=== PATIENT | female | born 1995 | race American Indian/Alaskan Native ===

== ENCOUNTER 2017-08-11 11:07 | Outpatient (CLI) | payer OTHER ==
[2017-08-11] MEDS ORDERED: LACTATED RINGERS 1,000 ML IV ONE (12:30)
[2017-08-11 12:34] LABS: Bacteria,Urine 2+ /HPF (Negative); Bilirubin,Urine NEG (Negative); Blood,Urine SM (Negative); Color,Urine Yellow (Yellow); Mucus,Urine 1+ /HPF; Protein,Urine <15 mg/dL mg/dL (Negative); Urobilinogen,Urine < 2.0 mg/dL (<2.0)
[2017-08-11 12:37] LABS: WBC,Urine > 182.0 /HPF (0.0-6.0)
[2017-08-11] MEDS ORDERED: MACROBID PO ONE (12:42)
[2017-08-11 12:45] LABS: Amphetamine Screen,Urine PRESUMPTIVE NEGATIVE; Benzodiazepines Screen,Urine PRESUMPTIVE NEGATIVE; Cannabinoid Screen,Urine PRESUMPTIVE NEGATIVE; Cocaine Screen,Urine PRESUMPTIVE NEGATIVE; Methadone Screen,Urine PRESUMPTIVE NEGATIVE; Opiate Screen,Urine PRESUMPTIVE NEGATIVE
== END 2017-08-11 13:20 | disposition home or self-care (01) ==
LOC: TRG 11:07
PROVIDERS: ATTEND Obstetrics & Gynecology
DX: O47.02 False labor before 37 completed weeks of gestation, second trimester (principal); Z3A.30 30 weeks gestation of pregnancy
CPT/HCPCS: 59025; 80307; 81001; 87076; 87086; 87186; 96360; J7120

== ENCOUNTER 2017-10-10 14:42 | Outpatient (CLI) | payer OTHER ==
[2017-10-10 15:15] VITALS: BP 123/80
[2017-10-10] MEDS ORDERED: LACTATED RINGERS 1,000 ML ONE (16:21)
--- NOTE | 2017-10-10 16:32 | Ultrasound Report ---
FINAL REPORT EXAM: US OB BPP WO NON-STRESS HISTORY: well being COMPARISON: None available. TECHNIQUE: Several real-time grayscale and color Doppler images were obtained. FINDINGS: Normal breathing movements, movements, posterior tone, qualitative amniotic fluid volume. heart rate 135 beats per minute. IMPRESSION: Biophysical profile score 8/8.
--- NOTE | 2017-10-10 16:33 | Ultrasound Report ---
FINAL REPORT EXAM: US OB LIMITED HISTORY: ann COMPARISON: Biophysical profile score from the same date. TECHNIQUE: Several real-time grayscale and color Doppler images were obtained. FINDINGS: Limited exam performed. Evaluation performed for or ANN measurement. ANN 10.1 centimeters. Single live IUP demonstrated. heart rate 137 beats per minute. presentation cephalic. IMPRESSION: Limited exam performed for evaluation of ANN. Total ANN 10.1 centimeters within normal limits.
[2017-10-10] MEDS ORDERED: BRETHINE SUB-Q ONE (17:00)
[2017-10-10] MEDS ORDERED: LACTATED RINGERS 1,000 ML IV ONE (17:00)
[2017-10-10] MEDS ORDERED: VISTARIL PO PRN (17:29)
== END 2017-10-10 17:56 | disposition home or self-care (01) ==
LOC: TRG 14:42
PROVIDERS: ATTEND Obstetrics & Gynecology
DX: O47.1 False labor at or after 37 completed weeks of gestation (principal); Z3A.39 39 weeks gestation of pregnancy; O99.333 Smoking (tobacco) complicating pregnancy, third trimester
CPT/HCPCS: 59025; 76815; 76819; 96360; 96372; J3105; J7120; Q0177

== ENCOUNTER 2017-10-10 19:42 | Inpatient (IN) | payer OTHER ==
[2017-10-10] MEDS ORDERED: VISTARIL PO ONE (20:00)
[2017-10-10] MEDS ORDERED: LACTATED RINGERS 1,000 ML IV SCH (20:00)
[2017-10-10] MEDS ORDERED: POLYCILLIN/NS 2 GM/100 ML 2 GM/100 ML BAG IV SCH (21:00)
[2017-10-10] MEDS ORDERED: ePHEDrine SULFATE IV PRN (21:29)
[2017-10-10] MEDS ORDERED: NARCAN 2 MG/2 ML IV PRN (21:29)
--- NOTE | 2017-10-10 21:29 | Anesthesia Consultation ---
Anesthesia Consult and Med Hx Date of service: 10/10/17 - Airway Anesthetic Teeth Evaluation: Good ROM Head & Neck: Adequate Mental/Hyoid Distance: Adequate Mallampati Class: Class II Intubation Access Assessment: Good - Pulmonary Exam CTA: Yes - Cardiac Exam Cardiac Exam: No Murmur - Pre-Operative Health Status ASA Pre-Surgery Classification: ASA2 Proposed Anesthetic Plan: Epidural - Pulmonary Hx Asthma: No COPD: No Hx Pneumonia: No - Cardiovascular System Hx Hypertension: Yes (unknown 2015) - Central Nervous System Hx Seizures: No Hx Psychiatric Problems: No - Endocrine Hx Renal Disease: No Hx End Stage Renal Disease: No Hx Hypothyroidism: No Hx Hyperthyroidism: No - Hematic Hx Anemia: No Hx Sickle Cell Disease: No - Other Systems Hx Alcohol Use: No
[2017-10-10] MEDS ORDERED: MORPHINE ONE ×2 (21:33→21:44)
[2017-10-10] MEDS ORDERED: TORADOL ONE (21:45)
[2017-10-10 21:47] LABS: Hematocrit 33.3 % (30.3-42.9); Mean Corpuscular HGB Conc 33 % (30-34); Mean Corpuscular Volume 74 fl (79-97); Platelet Count 203 K/mm3 (140-440); Red Cell Distribution Width 15.2 % (13.2-15.2)
[2017-10-10 21:48] LABS: Mean Corpuscular Hemoglobin 24 pg (28-32)
[2017-10-10] MEDS ORDERED: SUBLIMAZE IV PRN (21:51)
[2017-10-10] MEDS ORDERED: XYLOCAINE MPF 2% ONE ×4 (21:55)
[2017-10-10] MEDS ORDERED: fentaNYL-BUPIV 2 MCG/ML-0.125% 200 MCG/100 ML BAG EPIDURAL SCH (22:00)
[2017-10-10] MEDS ORDERED: VERSED ONE (22:01)
[2017-10-11] MEDS ORDERED: ZOFRAN IV PRN (00:30)
[2017-10-11] MEDS ORDERED: MINERAL OIL PO PRN (00:30)
[2017-10-11] MEDS ORDERED: BRETHINE SUB-Q PRN (00:30)
[2017-10-11] MEDS ORDERED: SUBLIMAZE IV PRN (00:30)
[2017-10-11] MEDS ORDERED: XYLOCAINE 2% INFILTRATI ONE (00:30)
--- NOTE | 2017-10-11 00:37 | History and Physical Report ---
History of Present Illness Date of examination: 10/11/17 (pt presents for the 2nd time today; now in active labor) Date of admission: 10/10/17 20:31 History of present illness: EDC Confirmation: 10/16/2017 Gestational Age: 32 5/7 weeks Past History : 1 Para: 0 Past Medical History: Reviewed history and no changes required: Negative Past Medical History Past Surgical History: Reviewed history and no changes required: Negative Past Surgical History Risk Factors: Smoked Tobacco Use: Current every day smoker Counseled to quit/cut down: yes Drug use: yes Substance: marijuana HIV high-risk behavior: low risk Caffeine use: 1 drinks per day Alcohol use: no Seatbelt use: 100 % Dietary Counseling: pn yes Family History Summary: No Known Family History - Entered On: 08/26/2017 Social History: Patient is single Smoking History: Patient currently smokes every day. Pt states she has stopped. Patient has been counseled to quit. Past Medical History Surgery (Non-rehabilitator): Negative Past Surgical History Abnormal PAP: negative CARLOS Exposure: negative Infertility: negative Uterine Anomaly: negative Uterine Surgery (not C/S): negative Other Gynecologic Problems: negative Social Hx: Patient is single Smoking History: Patient currently smokes every day. Pt states she has stopped. Patient has been counseled to quit. Infection History Hx of STD: chlamydia HIV Risk Eval: low risk Hepatitis B Risk Eval: low risk Personal hx. of genital herpes: no Partner hx. of genital herpes: no Rash, Viral, or Febrile illness since last LMP? no Varicella/Chicken Pox Status: Immunized TB Risk: no Genetic History Congenital Heart Defect: Mom: no Dad: no Pam Disease: Mom: no Dad: no Thalassemia Mom: no Dad: no Neural Tube Defect Mom: no Dad: no Down's Syndrome Mom: no Dad: no Michael-Sachs Mom: no Dad: no Sickle Cell Disease/Trait Mom: no Dad: no Hemophilia Mom: no Dad: no Muscular Dystrophy Mom: no Dad: no Cystic Fibrosis Mom: no Dad: no Mele Chorea Mom: no Dad: no Mental Retardation Mom: no Dad: no Fragile X Mom: no Dad: no Other Genetic/Chromosomal Disorder Mom: no Dad: no Child w/other defect Mom: no Dad: no Comments/Counseling: FOB is Enviromental Exposures Xray Exposure: no Medication, drug, or alcohol use since LMP: no Chemical/Other Exposure: no Exposure to Cat Liter: no Hx of Parvovirus (Fifth Disease): no Occupational Exposure to Children: none Current Allergies: No known allergies Past History - Obstetrical History Expected Date of Delivery: 10/16/17 Actual Gestation: 39 Week(s) 2 Day(s) : 1 Para: 0 Number of Living Children: 0 Medications and Allergies Allergies Allergy/AdvReac Type Severity Reaction Status Date / Time No Known Allergies Allergy Unverified 08/11/17 11:55 Home Medications Medication Instructions Recorded Confirmed Last Taken Type Nitrofurantoin Monohyd/M-Cryst 100 mg PO BID #13 capsule 08/11/17 10/10/17 Unknown Rx [Macrobid 100 mg Capsule] Pnv No.103/Folic/Om3s/Fish Oil 1 each PO DAILY 08/11/17 10/10/17 10/10/17 10:00 History [ Gummies] Active Meds: Active Medications Ephedrine Sulfate (Ephedrine Sulfate) 10 mg IV Q2M PRN PRN Reason: Hypotension Last Admin: 10/10/17 23:10 Dose: 10 mg Fentanyl (Sublimaze) 100 mcg IV Q2H PRN PRN Reason: Labor Pain Lactated Ringer's (Lactated Ringers) 1,000 mls @ 125 mls/hr IV DIRECT MICHEL Last Admin: 10/10/17 21:03 Dose: 125 mls/hr Fentanyl/Bupivacaine/Sodium Chlor (Fentanyl-Bupiv 2 Mcg/Ml-0.125%) 200 mcg in 100 mls @ 12 mls/hr EPIDURAL TITR MICHEL; Protocol Last Admin: 10/10/17 23:30 Dose: 12 mls/hr Lactated Ringer's (Lactated Ringers) 1,000 mls @ 125 mls/hr IV DIRECT MICHEL Oxytocin/Sodium Chloride (Pitocin/Ns 20 Unit/1000ml Drip) 20 units in 1,000 mls @ 125 mls/hr IV DIRECT MICHEL Lidocaine (Xylocaine 2%) 20 ml INFILTRATI ONCE ONE Stop: 10/11/17 00:31 Mineral Oil (Mineral Oil) 30 ml PO QHS PRN PRN Reason: Constipation Naloxone HCl (Narcan 2 Mg/2 Ml) 0.2 mg IV Q5M PRN PRN Reason: Respiratory sedation Ondansetron HCl (Zofran) 4 mg IV Q8H PRN PRN Reason: Nausea And Vomiting Terbutaline Sulfate (Brethine) 0.25 mg SUB-Q ONCE PRN PRN Reason: Hyperstimulation/Hypertonicity - Vital Signs Vital signs: Vital Signs Pulse Pulse Ox 96 H 93 10/10/17 19:55 10/10/17 19:55 Temp Pulse Resp BP Pulse Ox 97.8 F 76 18 119/73 99 10/10/17 21:01 10/11/17 00:34 10/10/17 22:01 10/11/17 00:10 10/11/17 00:34 - Physical Exam Breasts: Positive: deferred Cardiovascular: Regular rate, Normal S1, Normal S2 Lungs: Positive: Normal air movement Abdomen: Positive: normal appearance, soft, normal bowel sounds. Negative: distention, tenderness Genitourinary (Female): Positive: normal external genitalia Vulva: both: normal Vagina: Positive: normal moisture. Negative: discharge Cervix: Negative: lesion, discharge Uterus: Positive: normal size, normal contour Adnexa: both: normal Anus/Rectum: Positive: normal perianal skin, heme negative. Negative: rectal mass, hemorrhoids Extremities: Positive: normal Deep Tendon Reflex Grade: Normal +2 - Obstetrical FHR: category 2 Uterine Contraction Monitor Mode: External Cervical Dilatation: 3 (per photoflash powder mixer on admission) Cervical Effacement Percentage: 70 station: -2 Uterine Contraction Pattern: Regular Uterine Tone Measurement Phase: Resting Uterine Contraction Intensity: Moderate Results Result Diagrams: 10/10/17 20:20 Abnormal lab results 10/10/17 Range/Units 20:20 WBC 16.1 H (4.5-11.0) K/mm3 MCV 74 L (79-97) fl MCH 24 L (28-32) pg All other labs normal. GBS negative HBsAg Screen Negative Negative *1 RPR Non Reactive Non Reactive *2 Rubella Antibodies, IgG 1.71 index Immune >0.99 *3 Non-immune <0.90 Equivocal 0.90 - 0.99 Immune >0.99 ABO Grouping O *4 Rh Factor Positive *5 Please note: Prior records for this patient's ABO / Rh type are not available for additional verification. Antibody Screen Negative Negative *6 WBC 10.4 x10E3/uL 3.4-10.8 *7 RBC 4.52 x10E6/uL 3.77-5.28 *8 Hemoglobin [L] 10.5 g/dL 11.1-15.9 *9 Hematocrit 34.8 % 34.0-46.6 *10 MCV [L] 77 fL 79-97 *11 MCH [L] 23.2 pg 26.6-33.0 *12 MCHC [L] 30.2 g/dL 31.5-35.7 *13 RDW [H] 15.7 % 12.3-15.4 *14 Platelets 224 x10E3/uL 150-379 *15 Neutrophils 79 % Not Estab. *16 Lymphs 13 % Not Estab. *17 Monocytes 6 % Not Estab. *18 Eos 1 % Not Estab. *19 Basos 0 % Not Estab. *20 ! Immature Cells <No Reported Value> *21 Neutrophils (Absolute) [H] 8.3 x10E3/uL 1.4-7.0 *22 Lymphs (Absolute) 1.3 x10E3/uL 0.7-3.1 *23 Monocytes(Absolute) 0.6 x10E3/uL 0.1-0.9 *24 Eos (Absolute) 0.1 x10E3/uL 0.0-0.4 *25 Baso (Absolute) 0.0 x10E3/uL 0.0-0.2 *26 ! Immature Granulocytes 1 % Not Estab. *27 ! Immature Grans (Abs) 0.1 x10E3/uL 0.0-0.1 *28 ! NRBC <No Reported Value> *29 Hematology Comments: <No Reported Value> *30 Tests: (2) HB Solu + Rflx [facility] (199209) Hemoglobin (Hgb) Solubility Negative Negative *31 Tests: (3) Panel 831200 ([id number]) HIV Screen 4th Generation wRfx Non Reactive Non Reactive *32 Tests: (4) Gest. Diabetes 1-Hr Screen (812596) ! Gestational Diabetes Screen 98 mg/dL 65-139 *33 According to ADA, a glucose threshold of >139 mg/dL after 50-gram load identifies approximately 80% of women with gestational diabetes mellitus, while the sensitivity is further increased to approximately 90% by a threshold of >129 mg/dL. Tests: (5) HCV Ab w/Rflx to Verification ([id number]) ! HCV Ab <0.1 s/co ratio 0.0-0.9 *34 Tests: (6) Comment: (302309) ! Comment: SPRCS *35 Non reactive HCV antibody screen is consistent with no HCV infection, unless recent infection is suspected or other evidence exists to indicate HCV infection. Tests: (7) Urine Culture, Routine (595121) Urine Culture, Routine Final report *36 Tests: (8) Result ([id number]) ! Result 1 No growth Assessment and Plan 22yo @ 39 weeks in labor. GBS negative Orders in EMR
[2017-10-11] MEDS ORDERED: PITOCin/NS 20 UNIT/1000ML DRIP 20 UNITS/1,000 ML BAG IV SCH (01:00)
[2017-10-11] MEDS ORDERED: LACTATED RINGERS 1,000 ML IV SCH (01:00)
--- NOTE | 2017-10-11 01:00 | Progress Note ---
Assessment and Plan SROM light meconium SVE 9,100,0 ISE/IUPC placed Pt laboring on her own. Periodic deep variables after epidural Overall Cat 1 Anticipate delivery Subjective - Subjective Date of service: 10/11/17 (Pt comfortable with epidural) Interval history: EDC Confirmation: 10/16/2017 Gestational Age: 32 5/7 weeks Past History : 1 Para: 0 Past Medical History: Reviewed history and no changes required: Negative Past Medical History Past Surgical History: Reviewed history and no changes required: Negative Past Surgical History Risk Factors: Smoked Tobacco Use: Current every day smoker Counseled to quit/cut down: yes Drug use: yes Substance: marijuana HIV high-risk behavior: low risk Caffeine use: 1 drinks per day Alcohol use: no Seatbelt use: 100 % Dietary Counseling: pn yes Family History Summary: No Known Family History - Entered On: 08/26/2017 Social History: Patient is single Smoking History: Patient currently smokes every day. Pt states she has stopped. Patient has been counseled to quit. Past Medical History Surgery (Non-vendor representatives): Negative Past Surgical History Abnormal PAP: negative CARLOS Exposure: negative Infertility: negative Uterine Anomaly: negative Uterine Surgery (not C/S): negative Other Gynecologic Problems: negative Social Hx: Patient is single Smoking History: Patient currently smokes every day. Pt states she has stopped. Patient has been counseled to quit. Infection History Hx of STD: chlamydia HIV Risk Eval: low risk Hepatitis B Risk Eval: low risk Personal hx. of genital herpes: no Partner hx. of genital herpes: no Rash, Viral, or Febrile illness since last LMP? no Varicella/Chicken Pox Status: Immunized TB Risk: no Genetic History Congenital Heart Defect: Mom: no Dad: no Pam Disease: Mom: no Dad: no Thalassemia Mom: no Dad: no Neural Tube Defect Mom: no Dad: no Down's Syndrome Mom: no Dad: no Michael-Sachs Mom: no Dad: no Sickle Cell Disease/Trait Mom: no Dad: no Hemophilia Mom: no Dad: no Muscular Dystrophy Mom: no Dad: no Cystic Fibrosis Mom: no Dad: no Mele Chorea Mom: no Dad: no Mental Retardation Mom: no Dad: no Fragile X Mom: no Dad: no Other Genetic/Chromosomal Disorder Mom: no Dad: no Child w/other defect Mom: no Dad: no Comments/Counseling: FOB is Enviromental Exposures Xray Exposure: no Medication, drug, or alcohol use since LMP: no Chemical/Other Exposure: no Exposure to Cat Liter: no Hx of Parvovirus (Fifth Disease): no Occupational Exposure to Children: none Current Allergies: No known allergies Patient reports: movement normal Objective - Vital Signs Vital Signs: Vital Signs - 12hr 10/10/17 10/10/17 10/10/17 19:55 19:56 19:57 Temperature Pulse Rate 96 H 90 78 Respiratory Rate Blood Pressure 131/78 Blood Pressure [Left] Blood Pressure [Right] O2 Sat by Pulse 93 100 Oximetry 10/10/17 10/10/17 10/10/17 20:00 20:01 20:06 Temperature 98 F Pulse Rate 84 83 99 H Respiratory 20 Rate Blood Pressure Blood Pressure 131/78 [Left] Blood Pressure [Right] O2 Sat by Pulse 98 97 99 Oximetry 10/10/17 10/10/17 10/10/17 20:11 20:14 20:16 Temperature Pulse Rate 71 109 H 83 Respiratory Rate Blood Pressure Blood Pressure [Left] Blood Pressure [Right] O2 Sat by Pulse 99 94 99 Oximetry 10/10/17 10/10/17 10/10/17 20:51 20:56 21:01 Temperature 97.8 F Pulse Rate 78 75 71 Respiratory 16 Rate Blood Pressure Blood Pressure [Left] Blood Pressure 130/63 [Right] O2 Sat by Pulse 100 100 100 Oximetry 10/10/17 10/10/17 10/10/17 21:02 21:03 21:06 Temperature Pulse Rate 80 90 67 Respiratory Rate Blood Pressure 130/63 Blood Pressure [Left] Blood Pressure [Right] O2 Sat by Pulse 22 L 100 Oximetry 10/10/17 10/10/17 10/10/17 21:08 22:01 22:31 Temperature Pulse Rate 63 Respiratory 18 18 Rate Blood Pressure Blood Pressure [Left] Blood Pressure [Right] O2 Sat by Pulse 86 Oximetry 10/10/17 10/10/17 10/10/17 22:51 22:52 22:53 Temperature Pulse Rate 102 H 103 H 93 H Respiratory Rate Blood Pressure 131/71 130/70 Blood Pressure [Left] Blood Pressure [Right] O2 Sat by Pulse 97 Oximetry 10/10/17 10/10/17 10/10/17 22:56 22:58 22:59 Temperature Pulse Rate 99 H 93 H 88 Respiratory Rate Blood Pressure 143/84 131/75 130/70 Blood Pressure [Left] Blood Pressure [Right] O2 Sat by Pulse 98 Oximetry 10/10/17 10/10/17 10/10/17 23:02 23:03 23:04 Temperature Pulse Rate 114 H 95 H 84 Respiratory Rate Blood Pressure 127/76 126/66 Blood Pressure [Left] Blood Pressure [Right] O2 Sat by Pulse 97 Oximetry 10/10/17 10/10/17 10/10/17 23:05 23:07 23:08 Temperature Pulse Rate 93 H 60 65 Respiratory Rate Blood Pressure 115/71 105/62 Blood Pressure [Left] Blood Pressure [Right] O2 Sat by Pulse 99 Oximetry 10/10/17 10/10/17 10/10/17 23:09 23:12 23:13 Temperature Pulse Rate 63 80 89 Respiratory Rate Blood Pressure 107/62 98/57 Blood Pressure [Left] Blood Pressure [Right] O2 Sat by Pulse 94 Oximetry 10/10/17 10/10/17 10/10/17 23:15 23:18 23:22 Temperature Pulse Rate 60 60 Respiratory Rate Blood Pressure 120/58 Blood Pressure [Left] Blood Pressure [Right] O2 Sat by Pulse 79 L 100 Oximetry 10/10/17 10/10/17 10/10/17 23:23 23:27 23:28 Temperature Pulse Rate 69 75 73 Respiratory Rate Blood Pressure 112/61 Blood Pressure [Left] Blood Pressure [Right] O2 Sat by Pulse 100 100 Oximetry 10/10/17 10/10/17 10/10/17 23:33 23:38 23:43 Temperature Pulse Rate 70 71 88 Respiratory Rate Blood Pressure 117/65 Blood Pressure [Left] Blood Pressure [Right] O2 Sat by Pulse 100 100 100 Oximetry 10/10/17 10/10/17 10/10/17 23:48 23:53 23:55 Temperature Pulse Rate 68 73 71 Respiratory Rate Blood Pressure 109/57 Blood Pressure [Left] Blood Pressure [Right] O2 Sat by Pulse 100 100 Oximetry 10/10/17 10/10/17 10/11/17 23:58 23:59 00:03 Temperature Pulse Rate 71 73 88 Respiratory Rate Blood Pressure Blood Pressure [Left] Blood Pressure [Right] O2 Sat by Pulse 93 94 100 Oximetry 10/11/17 10/11/17 10/11/17 00:06 00:09 00:10 Temperature Pulse Rate 63 83 88 Respiratory Rate Blood Pressure 119/73 Blood Pressure [Left] Blood Pressure [Right] O2 Sat by Pulse 43 L 100 Oximetry 10/11/17 10/11/17 10/11/17 00:11 00:14 00:17 Temperature Pulse Rate 35 L 80 88 Respiratory Rate Blood Pressure Blood Pressure [Left] Blood Pressure [Right] O2 Sat by Pulse 0 L 100 78 L Oximetry 10/11/17 10/11/17 10/11/17 00:19 00:24 00:29 Temperature Pulse Rate 78 145 H 91 H Respiratory Rate Blood Pressure Blood Pressure [Left] Blood Pressure [Right] O2 Sat by Pulse 100 96 98 Oximetry 10/11/17 10/11/17 10/11/17 00:34 00:39 00:44 Temperature Pulse Rate 76 80 68 Respiratory Rate Blood Pressure 121/74 Blood Pressure [Left] Blood Pressure [Right] O2 Sat by Pulse 99 100 100 Oximetry 10/11/17 10/11/17 00:49 00:54 Temperature Pulse Rate 77 73 Respiratory Rate Blood Pressure Blood Pressure [Left] Blood Pressure [Right] O2 Sat by Pulse 100 100 Oximetry - Exam Breasts: deferred Cardiovascular: Regular rate Lungs: Normal air movement Abdomen: Present: normal appearance, soft. Absent: distention, tenderness Uterus: Present: normal FHR: auscultation normal, category 1 Uterine Contraction Monitor Mode: Internal Cervical Dilatation: 9 (Internals placed) Cervical Effacement Percentage: 100 station: 0 Uterine Contraction Pattern: Regular Uterine Tone Measurement Phase: Resting Uterine Contraction Intensity: Moderate Extremities: normal Deep Tendon Reflex Grade: Normal +2 - Labs Labs: Abnormal Labs 10/10/17 20:20 WBC 16.1 H MCV 74 L MCH 24 L Laboratory Results - last 24 hr 10/10/17 10/10/17 20:20 20:20 WBC 16.1 H RBC 4.50 Hgb 11.0 Hct 33.3 MCV 74 L MCH 24 L MCHC 33 RDW 15.2 Plt Count 203 Blood Type O POSITIVE Antibody Screen Negative
[2017-10-11 01:34] LABS: Amphetamine Screen,Urine PRESUMPTIVE NEGATIVE; Benzodiazepines Screen,Urine PRESUMPTIVE NEGATIVE; Cannabinoid Screen,Urine PRESUMPTIVE NEGATIVE; Cocaine Screen,Urine PRESUMPTIVE NEGATIVE; Methadone Screen,Urine PRESUMPTIVE NEGATIVE; Opiate Screen,Urine PRESUMPTIVE NEGATIVE
[2017-10-11] MEDS ORDERED: PHENERGAN PO PRN (02:53)
[2017-10-11] MEDS ORDERED: TUCKS PAD TP PRN (02:53)
[2017-10-11] MEDS ORDERED: BENADRYL PO PRN (02:53)
[2017-10-11] MEDS ORDERED: LANSINOH TP PRN (02:53)
[2017-10-11] MEDS ORDERED: MILK OF MAGNESIA PO PRN (02:53)
[2017-10-11] MEDS ORDERED: TYLENOL PO PRN (02:53)
[2017-10-11] MEDS ORDERED: DULCOLAX PR PRN (02:53)
[2017-10-11] MEDS ORDERED: SODIUM CHLORIDE FLUSH SYRINGE 10 ML IV PRN (03:00)
--- NOTE | 2017-10-11 03:03 | Procedure Note ---
OB Delivery Note - Delivery Date of Delivery: 10/11/17 House Superintendent: YEN ZULUAGA Estimated blood loss: 300cc - Vaginal Delivery presentation: vertex Delivery position: OA Intrapartum events: meconium, mult.variable deceleratio Delivery induction: none Delivery monitor: internal FHT, internal uterine Route of delivery: Delivery placenta: spontaneous Delivery cord: nuchal cord, 3 umbilical vessels Episiotomy: midline Delivery laceration: 2nd degree Delivery repair: vicryl Anesthesia: epidural Delivery comments: NICU Team present in Room due to meconium. live born male over 2nd degree episiotomy. Cord looped over right shoulder , easily removed. Baby passed to waiting NICU team. Cord blood obtained. Placenta and membrane del complete and intact, 3 vessel cord. Pit IVFs. Repair of 2nd degree with 2-0 vicryl in usual fashion. 8/9, EBL 300, Wgt 6-15. Mom and baby remain LDR stable. - A at 1 minute: 8 at 5 minutes: 9 Infant Gender: Male (wgt 6-15)
[2017-10-11] MEDS: NORCO 5/325 PO PRN ×2 (05:30→14:30)
[2017-10-11] MEDS: PRENATAL VITAMIN PO SCH (08:10)
[2017-10-11] MEDS: COLACE PO SCH ×2 (08:10→22:06)
[2017-10-11 14:16] LABS: Hematocrit 31.8 % (30.3-42.9); Hemoglobin 10.2 gm/dl (10.1-14.3)
[2017-10-11] MEDS: MOTRIN PO SCH ×2 (14:30→22:57)
[2017-10-12] MEDS ORDERED: M-M-R II VACCINE SUB-Q ONE (02:53)
[2017-10-12] MEDS ORDERED: BOOSTRIX IM ONE (06:00)
[2017-10-12] MEDS: MOTRIN PO SCH (06:00)
[2017-10-12] MEDS: NORCO 5/325 PO PRN (06:25)
--- NOTE | 2017-10-12 08:10 | Discharge Summary ---
Providers - Providers Date of Admission: 10/10/17 20:31 Date of discharge: 10/12/17 (d/c home pending carseat delivery) Attending physician: ZHAO MO Primary care physician: ZHAO MO Hospitalization Reason for admission: Labor Condition: Good Pertinent studies: post delivery H&H 10.2/31.8 Procedures: vaginal Hospital course: uncomplicated vaginal and course Disposition: DC-01 TO HOME OR SELFCARE - Discharge Diagnoses (1) Spontaneous vaginal delivery Status: Acute Core Measure Documentation - Palliative Care Palliative Care/ Comfort Measures: Not Applicable - Core Measures Any of the following diagnoses?: none Exam - Constitutional Vitals: Temp Pulse Resp BP Pulse Ox 98.3 F 75 20 111/72 97 10/12/17 01:10 10/12/17 01:10 10/12/17 06:25 10/12/17 01:10 10/11/17 18:04 General appearance: Present: no acute distress, well-nourished - EENT Eyes: Present: PERRL ENT: hearing intact, clear oral mucosa - Neck Neck: Present: supple, normal ROM - Respiratory Respiratory effort: normal Respiratory: bilateral: CTA - Cardiovascular Heart Sounds: Present: S1 & S2. Absent: rub, click - Extremities Extremities: pulses symmetrical, No edema Peripheral Pulses: within normal limits - Abdominal General gastrointestinal: Present: soft, non-tender, non-distended, normal bowel sounds Female genitourinary: Present: normal - Integumentary Integumentary: Present: clear, warm, dry - Musculoskeletal Musculoskeletal: gait normal, strength equal bilaterally - Psychiatric Psychiatric: appropriate mood/affect, intact judgment & insight - Neurologic Neurologic: CNII-XII intact, moves all extremities - Additional findings Additional findings: Fundus firm, lochia scant, bottle feeding, VSSAF, H&H stable w/o s/s anemia. Plan Activity: no restrictions Diet: regular Follow up with: ZHAO MO MD [Primary Care Provider] - 7 Days (Congratulations! Please call [phone] to schedule your son's circumcision in 1 week and your visit in 4 weeks. Bring BRY cream to your son's appointment and await further instructions. Call for any questions or concerns. ) Prescriptions: Ibuprofen [Motrin 800 MG tab] 800 mg PO TID PRN #30 tablet PRN Reason: Pain Lidocain2.5%/Prilocai2.5% [Emla] 5 gm TP PRN #1 tube
[2017-10-12] MEDS: COLACE PO SCH (10:52)
[2017-10-12] MEDS: PRENATAL VITAMIN PO SCH (10:52)
[2017-10-12 16:59] VITALS: BP 116/82
== END 2017-10-12 16:00 | disposition home or self-care (01) | DRG 775 ==
LOC: TRG 19:42 → LD 20:31 → OB 10-11 04:41
PROVIDERS: ADMIT Obstetrics & Gynecology; ATTEND Obstetrics & Gynecology
PROC: 10E0XZZ Delivery of Products of Conception, External Approach (ICD-10-PCS; principal; 2017-10-11)
PROC: 0W8NXZZ Division of Female Perineum, External Approach (ICD-10-PCS; 2017-10-11)
PROC: 3E0R3BZ Introduction of Anesthetic Agent into Spinal Canal, Percutaneous Approach (ICD-10-PCS; 2017-10-11)
PROC: 00HU33Z Insertion of Infusion Device into Spinal Canal, Percutaneous Approach (ICD-10-PCS; 2017-10-11)
PROC: 3E0234Z Introduction of Serum, Toxoid and Vaccine into Muscle, Percutaneous Approach (ICD-10-PCS; 2017-10-12)
DX: O77.0 Labor and delivery complicated by meconium in amniotic fluid (principal); O76 Abnormality in fetal heart rate and rhythm complicating labor and delivery; O69.81X0 Labor and delivery complicated by cord around neck, without compression, not applicable or unspecified; O70.1 Second degree perineal laceration during delivery; O99.334 Smoking (tobacco) complicating childbirth; F17.210 Nicotine dependence, cigarettes, uncomplicated; Z3A.39 39 weeks gestation of pregnancy; Z37.0 Single live birth; Z23 Encounter for immunization; Z79.899 Other long term (current) drug therapy
CPT/HCPCS: 36415; 80307; 85014; 85018; 85027; 86592; 86850; 86900; 86901; 88307; 90471; 99406; J0290; J1885; J2250; J2270; J2590; J3010; J7120